=== PATIENT | male | born 1950 | race Caucasian/White ===

== ENCOUNTER → 2024-01-06 | Outpatient (CLI) | payer MEDICARE, OTHER ==
[2024-01-06 18:49] LABS: HCT 50.8 % (39.6-50.0); HGB 16.5 g/dL (13.0-17.0); MCH 31.1 pg (27.0-32.0); MCHC 32.5 g/dL (32.0-37.0); MCV 95.7 FL (80.0-97.0); Mean Platelet Volume 10.7 FL (9.5-12.2); NRBC Per 100 WBC 0 X 10*3/uL (0.00-0.01); Platelet Count 192 X 10*3/uL (140-440); RBC 5.31 X 10*6/uL (4.40-5.60); RDW 13.5 % (11.5-14.5); WBC 7.86 X 10*3/uL (4.50-10.00)
[2024-01-06 21:29] LABS: ALT 14 U/L (10-49); AST 19 U/L (14-35); Albumin 4.2 g/dL (3.8-4.9); Albumin/Globulin Ratio 1.75 Ratio (1.60-3.17); Alkaline Phosphatase 37 U/L (41-126); BUN/Creat Ratio 20.62 Ratio (12.00-20.00); Blood Urea Nitrogen 26.8 mg/dL (9.0-27.0); Calcium 9.2 mg/dL (8.7-10.3); Carbon Dioxide 27.5 mmol/L (21.6-31.8); Chloride 104 mmol/L (96-109); Chol/HDL Ratio 4.73 Ratio; Globulin 2.4 g/dL (1.6-3.3); Glucose 91 mg/dL (70-110); Potassium 3.8 mmol/L (3.5-5.5); Sodium 145 mmol/L (135-145); Total Bilirubin 0.8 mg/dL (0.3-1.2); Total Protein 6.6 g/dL (6.2-8.2)
[2024-01-06 21:47] LABS: NT-Pro-B-Type Natriuretic Pept 1047 pg/mL (0-125)
== END | disposition home or self-care (01) ==
LOC: LABWHC1 13:45
PROVIDERS: ATTEND Student in an Organized Health Care Education/Training Program
DX: E11.22 Type 2 diabetes mellitus with diabetic chronic kidney disease (principal); N18.9 Chronic kidney disease, unspecified; D63.1 Anemia in chronic kidney disease; I50.9 Heart failure, unspecified; E78.5 Hyperlipidemia, unspecified
CPT/HCPCS: 36415; 80053; 80061; 83036; 83880; 85027

== ENCOUNTER 2024-04-05 10:36 | Day surgery (SDC) | payer MEDICARE ==
[~2024-04-05 10:36] MED LIST: SODIUM CHLORIDE 0.9% 1,000 ML IV SCH; ceFAZolin 1 GM in SODIUM CHLORIDE 0.9% IRRIG BTL 250 ML IRRIGATION PRN
[2024-04-05] MEDS: SODIUM CHLORIDE 0.9% 1,000 ML IV SCH (11:31)
[2024-04-05 11:44] LABS: Glucose,Whole Blood 124 mg/dL (70-110)
[2024-04-05 11:45] VITALS: RESP 20; TEMP 97.5
[2024-04-05] MEDS: fentaNYL (PF) 50 MCG/ML 2 ML AMP IVP ONE ×3 (12:28→12:33)
[2024-04-05] MEDS: MIDAZOLAM 2 MG/2 ML VIAL IVP ONE ×3 (12:28→12:33)
[2024-04-05] MEDS: IV FLUID CONTINUATION 1,000 ML IV ONE (12:31)
[2024-04-05] MEDS: ceFAZolin 1,000 MG VIAL IVPB ONE (12:33)
[2024-04-05] MEDS: LIDOCAINE 1% INJ 10MG/ML (20 ML MDV) SQ ONE (12:34)
--- NOTE | 2024-04-05 13:04 | P.PCN ---
Description of Procedure: CARDIOLOGY PROCEDURE NOTE Policy Value Calculator: Dr. Live Pavon Procedure performed: Dual chamber permanent pacemaker generator change Site: Left subclavian Indications: Sick Sinus Syndrome, SACHI Complications: None Blood Loss: Minimal Description of Procedure: After the risks, benefits, and alternatives of the above-mentioned procedure was explained in detail with the patient, informed consent was obtained. The patient was taken to the cardiac catheterization suite where the left subclavian area was sterily prepped and draped in the usual fashion. Patient was given IV Versed and fentanyl for sedation. The skin over the existing pulse generator was infiltrated with lidocaine. An incision was made in the skin and was deepened until the pectoral fascia was exposed. Hemostasis was obtained. The existing pulse generator was pulled out of the pocket. The leads were disconnected and were checked for thresholds. The existing leads were then inserted into the appropriate position into the new generator. They were then secured with the setscrew provided. The leads and generator were inserted into the pocket with the leads posterior. The subcutaneous tissue was approximated utilizing #2.0 and 3.0 vicryl in an interrupted stitch fashion. The dermal layer was approximated utilizing #4.0 vicryl. The area was cleansed with sterile saline and dried. A sterile 4x4 dressing was applied and the patient was transferred to the post catheterization holding area in stable and satisfactory condition. The patient tolerated the procedure well. Generator Data Sheet Tailer: [employer] Brand: [email or web address] Model #: [id number] Serial#: [id number] Right Atrial Bipolar Lead Data: Type: Active fixation lead Sheet Tailer: [employer] Model#: Tendril ST 1782TC 46cm Serial Number: [id number] Right Ventricular Bipolar Lead Data: Type: Active fixation lead Sheet Tailer: [employer] Model #: Tendril ST 1782TC 58cm Serial #: [id number] Stimulation Thresholds: Right atrial bipolar lead pacing and sensing thresholds Voltage: Afib Impedance: Afib P-wave sensing: Afib Right Ventricular bipolar lead pacing and sensing thresholds Pulse Width: 0.5ms Voltage: 1.125 volts Impedance: 390 ohms R-wave sensin.9 mV Parameter Setting: Pacing mode is VVIR Lower rate 60 bpm Upper rate 130 bpm Impressions: 1. Successful generator change of a dual chamber permanent pacemaker in the left pectoral site. Plan: 1. Routine post procedure care will be instituted as well as outpatient follow- up surveillance.
[2024-04-05 14:51] VITALS: BP 162/70; PULSE 102
== END 2024-04-05 14:30 | disposition home or self-care (01) ==
LOC: CATHEP 10:36
PROVIDERS: ATTEND Internal Medicine
CPT/HCPCS: 33228

== ENCOUNTER 2024-09-14 07:31 | Day surgery (SDC) | payer MEDICARE, OTHER ==
[2024-09-12 14:31] VITALS: BMI 39.9
[2024-09-14 08:24] VITALS: TEMP 97.3
[2024-09-14] MEDS: LACTATED RINGERS 1,000 ML IV SCH (08:28)
[2024-09-14 08:29] LABS: Glucose,Whole Blood 131 mg/dL (70-110)
[2024-09-14] MEDS ORDERED: PROPOFOL 10 MG/ML 20 ML VIAL IV ONE (08:29)
[2024-09-14] MEDS ORDERED: LIDOCAINE 1% INJ 10MG/ML (20 ML MDV) ONE (08:29)
--- NOTE | 2024-09-14 08:34 | P.GSHP ---
History of Present Illness H&P Date: 09/14/24 CHIEF COMPLAINT: Colon screen HISTORY OF PRESENT ILLNESS: The patient is a 74-year-old male who presents for colon screen. Lower endoscopy was offered for further evaluation and management. PAST MEDICAL HISTORY: Please see list. PAST SURGICAL HISTORY: Please see list. MEDICATIONS: Please see list. ALLERGIES: Please see list. SOCIAL HISTORY: No illicit drug use FAMILY HISTORY: No reports of Crohn disease or ulcerative colitis. REVIEW OF ORGAN SYSTEMS: CONSTITUTIONAL: No reports of fevers or chills. PHYSICAL EXAM: VITAL SIGNS: Stable GENERAL: Well-developed pleasant in no acute distress. HEENT: No scleral icterus. Extraocular movements grossly intact. Moist buccal mucosa. NECK: Supple without lymphadenopathy. CHEST: Unlabored respirations. Equal bilateral excursions. CARDIOVASCULAR: Regular rate and rhythm. Distal 2+ pulses. ABDOMEN: Soft, nontender, nondistended. MUSCULOSKELETAL: No clubbing, cyanosis, or edema. ASSESSMENT: 1. Colon screen. PLAN: 1. Recommend proceeding with a lower endoscopy Past Medical History Past Medical History: Atrial Fibrillation, COPD, Diabetes Mellitus, Deep Vein Thrombosis (DVT), Hyperlipidemia, Hypertension, Osteoarthritis (OA), Sleep Apnea/CPAP/BIPAP Additional Past Medical History / Comment(s): Current hemmoroids & pilonidal cyst, hx of colon polyps. Hx broken back. back pain. allergies- sinus drainage, chronic chest congestion, old blood clot to R leg, gout, wears cpap, scabs on arms, PVD, tinnitus, wears L knee brace. History of Any Multi-Drug Resistant Organisms: None Reported Past Surgical History: Appendectomy, Pacemaker Additional Past Surgical History / Comment(s): pain procedures, pilonidal cyst removal. Pacemaker insertion X2 due to bradycardia at night, sinus surgery, colonoscopy Past Anesthesia/Blood Transfusion Reactions: Previous Problems w/ Anesthesia Additional Past Anesthesia/Blood Transfusion Reaction / Comment(s): Hx of intubation for scopes in the past; pt requesting not to be intubated if possible. No hx of blood transfusion Type of Cardiac Device: Permanent Pacemaker Device Placement Date:: March 2024 Smoking Status: Former smoker - Past Family History Father History Unknown: Yes Additional Family Medical History / Comment(s): Parents are passed, medical hx unknown. Medications and Allergies Home Medications Medication Instructions Recorded Confirmed Type Aspirin 81 mg PO DAILY 03/31/24 09/12/24 History Atorvastatin Calcium 20 mg PO HS 03/31/24 09/12/24 History Azelastine HCl [Astepro] 1 spray NASAL BID 03/31/24 09/12/24 History Canagliflozin [Invokana] 300 mg PO DAILY 03/31/24 09/12/24 History Ergocalciferol [Vitamin D2 (1250 50,000 unit PO CAI 03/31/24 09/12/24 History Mcg = 78604 Iu)] Furosemide [Lasix] 40 mg PO DAILY 03/31/24 09/12/24 History Ibuprofen [Motrin] 800 mg PO DIRECTED PRN 03/31/24 09/12/24 History Liraglutide [Victoza 3-Maciel] 0.6 - 1.8 mg SQ HS PRN 03/31/24 09/12/24 History Loratadine 10 mg PO DAILY 03/31/24 09/12/24 History Rivaroxaban [Xarelto] 20 mg PO DAILY 03/31/24 09/12/24 History Unk Combivent Inhaler 1 puff INHALATION DAILY 03/31/24 09/12/24 History allopurinoL 200 mg PO DAILY 03/31/24 09/12/24 History glipiZIDE [Glipizide] 10 mg PO AC-SUPPER 03/31/24 09/12/24 History Diclofenac Sodium [Voltaren 1 applic TOPICAL CAI 09/12/24 09/12/24 History Arthritis Pain 1% Gel] Eplerenone 25 mg PO DAILY 09/12/24 09/12/24 History Metoprolol Succinate [Metoprolol 25 mg PO DAILY 09/12/24 09/12/24 History Succinate ER] Nyquil 1 dose PO DIRECTED PRN 09/12/24 09/12/24 History Oxymetazoline 0.05% Nasl [place] 2 spray EA NOSTRIL BID PRN 09/12/24 09/12/24 History [Afrin 0.05% Nasal [place]] witch Marquita [Preparation H 1 pad TOPICAL DIRECTED PRN 09/12/24 09/12/24 History Pad/Wipe] Allergies Allergy/AdvReac Type Severity Reaction Status Date / Time No Known Allergies Allergy Verified 09/14/24 08:07 Surgical - Exam Vital Signs Temp Pulse Resp BP Pulse Ox 97.3 F L 87 16 161/90 92 L 04/02/25 08:22 09/14/24 08:22 09/14/24 08:22 09/14/24 08:22 09/14/24 08:22 Results - Labs Abnormal Lab Results - Last 24 Hours (Table) 09/14/24 Range/Units 08:28 POC Glucose (mg/dL) 131 H (70-110) mg/dL
[2024-09-14 09:07] LABS: Glucose,Whole Blood 123 mg/dL (70-110)
[2024-09-14 09:14] VITALS: BP 145/82; PULSE 70; RESP 16
--- NOTE | 2024-09-14 09:20 | P.PCN ---
Date of Procedure: 09/14/24 Description of Procedure: PREOPERATIVE DIAGNOSIS: Personal history of colon polyps Colonoscopy screening. POSTOPERATIVE DIAGNOSIS: Colonoscopy screening. Diverticulosis, scattered. OPERATION: Colonoscopy to the cecum, ileocecal valve and appendiceal orifice. SURGEON: Lauryn Hardy MD. ANESTHESIA: MAC. INDICATIONS: The patient is a 74-year-old male who presents for colonoscopy screening. Last colonoscopy 5 years ago. Benefits and risks were described and informed consent was obtained. DESCRIPTION OF PROCEDURE: The patient had undergone GoLytely prep. The patient had been brought into the operating room and laid in the left lateral decubitus position. After adequate intravenous sedation, the rectum was examined with 2% lidocaine jelly. No external hemorrhoids were encountered. No recurrent pilonidal cyst was found. Prostate was unremarkable. The rectal tone was within normal limits. No lesions were palpated in the rectal vault. An Olympus colonoscope was advanced until the cecum, ileocecal valve and appendiceal orifice were clearly viewed. The prep was good. Scattered diverticulosis was encountered. No colonic polyps were found. No evidence of focal colitis was found. Retroflexion of the scope demonstrated grade 1 internal hemorrhoids without active bleeding or inflamm ation. The colon was desufflated. The patient had tolerated the procedure well. Withdrawal time was over 6 minutes. FINDINGS: Aronchick preparation quality scale 2 (1-5) Internal hemorrhoids, grade 1 No external prolapsed hemorrhoids. No arteriovenous malformations. No adenomatous polyps. No focal colitis. No recurrent pilonidal cyst RECOMMENDATIONS: Lower endoscopy in 5 years2029 Plan - Discharge Summary Discharge Rx Participant: No New Discharge Prescriptions: Continue Furosemide [Lasix] 40 mg PO DAILY Aspirin 81 mg PO DAILY Canagliflozin [Invokana] 300 mg PO DAILY Ergocalciferol [Vitamin D2 (1250 Mcg = 91937 Iu)] 50,000 unit PO CAI glipiZIDE 10 mg PO AC-SUPPER Atorvastatin Calcium 20 mg PO HS allopurinoL 200 mg PO DAILY Unk Combivent Inhaler 1 puff INHALATION DAILY Eplerenone 25 mg PO DAILY witch Marquita [Preparation H Pad/Wipe] 1 pad TOPICAL DIRECTED PRN PRN Reason: Hemorrhoids Azelastine HCl [Astepro] 1 spray NASAL BID Liraglutide [Victoza 3-Maciel] 0.6 - 1.8 mg SQ HS PRN PRN Reason: as directed, per sliding scale Ibuprofen [Motrin] 800 mg PO DIRECTED PRN PRN Reason: Pain Loratadine 10 mg PO DAILY Rivaroxaban [Xarelto] 20 mg PO DAILY Oxymetazoline 0.05% Nasl [place] [Afrin 0.05% Nasal [place]] 2 spray EA NOSTRIL BID PRN PRN Reason: Allergy Symptoms Metoprolol Succinate [Metoprolol Succinate ER] 25 mg PO DAILY Diclofenac Sodium [Voltaren Arthritis Pain 1% Gel] 1 applic TOPICAL CAI Nyquil 1 dose PO DIRECTED PRN PRN Reason: Chest congestion and cough Discharge Medication List Aspirin 81 mg PO DAILY 03/31/24 [History] Atorvastatin Calcium 20 mg PO HS 03/31/24 [History] Azelastine HCl [Astepro] 1 spray NASAL BID 03/31/24 [History] Canagliflozin [Invokana] 300 mg PO DAILY 03/31/24 [History] Ergocalciferol [Vitamin D2 (1250 Mcg = 12943 Iu)] 50,000 unit PO CAI 03/31/24 [History] Furosemide [Lasix] 40 mg PO DAILY 03/31/24 [History] Ibuprofen [Motrin] 800 mg PO DIRECTED PRN 03/31/24 [History] Liraglutide [Victoza 3-Maciel] 0.6 - 1.8 mg SQ HS PRN 03/31/24 [History] Loratadine 10 mg PO DAILY 03/31/24 [History] Rivaroxaban [Xarelto] 20 mg PO DAILY 03/31/24 [History] Unk Combivent Inhaler 1 puff INHALATION DAILY 03/31/24 [History] allopurinoL 200 mg PO DAILY 03/31/24 [History] glipiZIDE 10 mg PO AC-SUPPER 03/31/24 [History] Diclofenac Sodium [Voltaren Arthritis Pain 1% Gel] 1 applic TOPICAL CAI 09/12/24 [History] Eplerenone 25 mg PO DAILY 09/12/24 [History] Metoprolol Succinate [Metoprolol Succinate ER] 25 mg PO DAILY 09/12/24 [History] Nyquil 1 dose PO DIRECTED PRN 09/12/24 [History] Oxymetazoline 0.05% Nasl [place] [Afrin 0.05% Nasal [place]] 2 spray EA NOSTRIL BID PRN 09/12/24 [History] randy Juárez [Preparation H Pad/Wipe] 1 pad TOPICAL DIRECTED PRN 09/12/24 [History] Follow up Appointment(s)/Referral(s): Lauryn Hardy MD [STAFF PHYSICIAN] - As Needed Patient Instructions/Handouts: *Surgery [facility] - (Anesthesia) Discharge Instructions Outpatient Surgery, Diverticulosis (ED) Activity/Diet/Wound Care/Special Instructions: May resume blood thinner today. Repeat colonoscopy 5 years, 2029 Discharge Disposition: HOME SELF-CARE
== END 2024-09-14 09:53 | disposition home or self-care (01) ==
LOC: ORWHC2ENDO 07:31
PROVIDERS: ATTEND Surgery Plastic and Reconstructive Surgery
DX: Z12.11 Encounter for screening for malignant neoplasm of colon (principal); Z86.0100 Personal history of colon polyps, unspecified; K57.30 Diverticulosis of large intestine without perforation or abscess without bleeding; K64.8 Other hemorrhoids; I48.91 Unspecified atrial fibrillation; J44.9 Chronic obstructive pulmonary disease, unspecified; E11.51 Type 2 diabetes mellitus with diabetic peripheral angiopathy without gangrene; E78.5 Hyperlipidemia, unspecified; G47.30 Sleep apnea, unspecified; I10 Essential (primary) hypertension; Z95.0 Presence of cardiac pacemaker; Z87.891 Personal history of nicotine dependence; Z79.01 Long term (current) use of anticoagulants; Z79.84 Long term (current) use of oral hypoglycemic drugs; Z79.82 Long term (current) use of aspirin
CPT/HCPCS: J2003; J2704; G0105

== ENCOUNTER 2024-10-17 12:02 | Inpatient (IN) | payer OTHER, MEDICARE ==
--- NOTE | 2024-10-17 12:29 | ED ---
General Adult HPI - General Chief complaint: Shortness of Breath Stated complaint: SOB Time Seen by Provider: 10/17/24 12:05 Source: patient, RN notes reviewed, old records reviewed Mode of arrival: wheelchair Limitations: no limitations - History of Present Illness Initial comments: 74-year-old male who presents to the emergency department stating that he quit smoking about 15 years ago but comes in today because he had difficulty breathing for about a week. Patient states is getting progressively worse. Patient denies any known fever but states in the morning he does cough up some sputum. Patient denies any chest pain or palpitations. Patient denies any abdominal pain patient has nausea vomiting. Patient has any swelling to the legs or calf tenderness. Patient states he does have a history of atrial fibrillation. - Related Data Home Medications Medication Instructions Recorded Confirmed Aspirin 81 mg PO DAILY 03/31/24 09/12/24 Atorvastatin Calcium 20 mg PO HS 03/31/24 09/12/24 Azelastine HCl [Astepro] 1 spray NASAL BID 03/31/24 09/12/24 Canagliflozin [Invokana] 300 mg PO DAILY 03/31/24 09/12/24 Ergocalciferol [Vitamin D2 (1250 50,000 unit PO CAI 03/31/24 09/12/24 Mcg = 22711 Iu)] Furosemide [Lasix] 40 mg PO DAILY 03/31/24 09/12/24 Ibuprofen [Motrin] 800 mg PO DIRECTED PRN 03/31/24 09/12/24 Liraglutide [Victoza 3-Maciel] 0.6 - 1.8 mg SQ HS PRN 03/31/24 09/12/24 Loratadine 10 mg PO DAILY 03/31/24 09/12/24 Rivaroxaban [Xarelto] 20 mg PO DAILY 03/31/24 09/12/24 Unk Combivent Inhaler 1 puff INHALATION DAILY 03/31/24 09/12/24 allopurinoL 200 mg PO DAILY 03/31/24 09/12/24 glipiZIDE 10 mg PO AC-SUPPER 03/31/24 09/12/24 Diclofenac Sodium [Voltaren 1 applic TOPICAL CAI 09/12/24 09/12/24 Arthritis Pain 1% Gel] Eplerenone 25 mg PO DAILY 09/12/24 09/12/24 Metoprolol Succinate [Metoprolol 25 mg PO DAILY 09/12/24 09/12/24 Succinate ER] Nyquil 1 dose PO DIRECTED PRN 09/12/24 09/12/24 Oxymetazoline 0.05% Nasl [place] 2 spray EA NOSTRIL BID PRN 09/12/24 09/12/24 [Afrin 0.05% Nasal [place]] randy Juárez [Preparation H 1 pad TOPICAL DIRECTED PRN 09/12/24 09/12/24 Pad/Wipe] Allergies Allergy/AdvReac Type Severity Reaction Status Date / Time No Known Allergies Allergy Verified 10/17/24 12:09 Review of Systems ROS Statement: Those systems with pertinent positive or pertinent negative responses have been documented in the HPI. ROS Other: All systems not noted in ROS Statement are negative. Past Medical History Past Medical History: Atrial Fibrillation, COPD, Diabetes Mellitus, Deep Vein Th rombosis (DVT), Hyperlipidemia, Hypertension, Osteoarthritis (OA), Sleep Apnea/CPAP/BIPAP Additional Past Medical History / Comment(s): Current hemmoroids & pilonidal cyst, hx of colon polyps. Hx broken back. back pain. allergies- sinus drainage, chronic chest congestion, old blood clot to R leg, gout, wears cpap, scabs on arms, PVD, tinnitus, wears L knee brace. History of Any Multi-Drug Resistant Organisms: None Reported Past Surgical History: Appendectomy, Pacemaker Additional Past Surgical History / Comment(s): pain procedures, pilonidal cyst removal. Pacemaker insertion X2 due to bradycardia at night, sinus surgery, colonoscopy Past Anesthesia/Blood Transfusion Reactions: Previous Problems w/ Anesthesia Additional Past Anesthesia/Blood Transfusion Reaction / Comment(s): Hx of intubation for scopes in the past; pt requesting not to be intubated if possible. No hx of blood transfusion Type of Cardiac Device: Permanent Pacemaker Device Placement Date:: March 2024 Past Psychological History: No Psychological Hx Reported Smoking Status: Former smoker - Past Family History Father History Unknown: Yes Additional Family Medical History / Comment(s): Parents are passed, medical hx unknown. General Exam - General Exam Comments Initial Comments: GENERAL: Patient is well-developed and well-nourished. Patient is nontoxic and well- hydrated and is in mild distress. ENT: Neck is soft and supple. No significant lymphadenopathy is noted. Oropharynx is clear. Moist mucous membranes. Neck has full range of motion without eliciting any pain. EYES: The sclera were anicteric and conjunctiva were pink and moist. Extraocular movements were intact and pupils were equal round and reactive to light. Eyelids were unremarkable. PULMONARY: Unlabored respirations. Good breath sounds bilaterally. Has crackles in the bases much more on the right than the left CARDIOVASCULAR: There is a regular rate and rhythm without any murmurs gallops or rubs. ABDOMEN: Soft and nontender with normal bowel sounds. SKIN: Skin is clear with no lesions or rashes and otherwise unremarkable. NEUROLOGIC: Patient is alert and oriented x3. Cranial nerves II through XII are grossly intact. Motor and sensory are also intact. Normal speech, volume and content. Symmetrical smile. MUSCULOSKELETAL: Normal extremities with adequate strength and full range of motion. Scant edema bilaterally LYMPHATICS: No significant lymphadenopathy is noted PSYCHIATRIC: Normal psychiatric evaluation. Limitations: no limitations Course Vital Signs 10/17/24 10/17/24 12:05 13:32 Temperature 97.8 F Pulse Rate 114 H 105 H Respiratory 17 20 Rate Blood Pressure 141/92 135/105 O2 Sat by Pulse 92 L 94 L Oximetry Medical Decision Making - Medical Decision Making EKG is interpreted by myself. EKG shows atrial fibrillation with rapid ventricular response at 108 bpm QRS is 110 QT interval is 333 QTc is 397. Patient's EKG shows no ST segment elevation or depression. Was pt. sent in by a medical professional or institution (FAHAD Mcdonald, PASSENGER REPRESENTATIVE, urgent care, hospital, or detention...) When possible be specific @ -No Did you speak to anyone other than the patient for history (EMS, parent, family, police, friend...)? What history was obtained from this source @ -No Did you review nursing and triage notes (agree or disagree)? Why? @ -I reviewed and agree with nursing and triage notes Were old charts reviewed (outside hosp., previous admission, EMS record, old EKG, old radiological studies, urgent care reports/EKG's, detention records)? Report findings @ -No old charts were reviewed Differential Diagnosis? @ -Differential chest pain EKG interpreted by me (3pts min.). @ -As above X-rays interpreted by me (1pt min.). @ -Chest x-ray shows diffuse patchy infiltrates bilaterally consistent with either pneumonia or CHF. Patient will initially be treated for both though his CHF seems more likely. CT interpreted by me (1pt min.). @ -None done U/S interpreted by me (1pt. min.). @ -None done What testing was considered but not performed or refused? (CT, X-rays, U/S, labs)? Why? @ -None What meds were considered but not given or refused? Why? @ -None Did you discuss the management of the patient with other professionals (professionals i.e. , PA, PASSENGER REPRESENTATIVE, lab, RT, psych nurse, rn social services, demographer, teacher, nuclear medicine officer, family caseworker)? Give summary @ -Spoke with [facility] hospitalist agreed to admit the patient admit the patient I wrote admitting orders Was smoking cessation discussed for >3mins.? @ -No Was critical care preformed (if so, how long)? @ -No Were there social determinants of health that impacted care today? How? (Homelessness, low income, unemployed, alcoholism, drug addiction, transportation, low edu. Level, literacy, decrease access to med. care, fpc, rehab)? @ -No Was there de-escalation of care discussed even if they declined (Discuss DNR or withdrawal of care, Hospice)? DNR status @ -No What co-morbidities impacted this encounter? (DM, HTN, Smoking, COPD, CAD, Cancer, CVA, ARF, Chemo, Hep., AIDS, mental health diagnosis, sleep apnea, morbid obesity)? @ -None Was patient admitted / discharged? Hospital course, mention meds given and route, prescriptions, significant lab abnormalities, going to OR and other pertinent info. @ -Patient was given antibiotics in the emergency department as well as Lasix for the pulmonary edema. Patient will be admitted to extremis and hospitalist Undiagnosed new problem with uncertain prognosis? @ -No Drug Therapy requiring intensive monitoring for toxicity (Heparin, Nitro, Insulin, Cardizem)? @ -No Were any procedures done? @ -No Diagnosis/symptom? @ -Pulmonary edema Acute, or Chronic, or Acute on Chronic? @ -Acute Uncomplicated (without systemic symptoms) or Complicated (systemic symptoms)? @ -Default Side effects of treatment? @ -No Exacerbation, Progression, or Severe Exacerbation? @ -No Poses a threat to life or bodily function? How? (Chest pain, [place], [place], pneumonia, PE, COPD, DKA, ARF, appy, cholecystitis, CVA, Diverticulitis, Homicidal, Suicida l, threat to staff... and all critical care pts) @ -Yes this can lead to hypoxia and endorgan dysfunction Diagnosis/symptom? @ -Pneumonia Acute, or Chronic, or Acute on Chronic? @ -Acute Uncomplicated (without systemic symptoms) or Complicated (systemic symptoms)? @ -Complicated Side effects of treatment? @ -None Exacerbation, Progression, or Severe Exacerbation] @ -No Poses a threat to life or bodily function? @ -Yes this can lead to sepsis and endorgan dysfunction - Lab Data Result diagrams: 10/17/24 12:46 10/17/24 12:46 Lab Results 10/17/24 10/17/24 10/17/24 Range/Units 12:46 12:46 12:46 WBC 9.57 (4.50-10.00) 10*3/uL RBC 5.24 (4.40-5.60) 10*6/uL Hgb 17.0 (13.0-17.0) g/dL Hct 49.5 (39.6-50.0) % MCV 94.5 (80.0-97.0) fL MCH 32.4 H (27.0-32.0) pg MCHC 34.3 (32.0-37.0) g/dL Plt Count 241 (140-440) 10*3/uL MPV 9.2 L (9.5-12.2) fL Immature Gran % (Auto) 0.3 % Neutrophils % 76.1 % Lymphocytes % 9.4 % Monocytes % 9.4 % Eosinophils % 3.8 % Basophils % 1.0 % Immature Gran # 0.03 (0.00-0.04) 10*3/uL Neutrophils # 7.28 (1.80-7.70) 10*3/uL Lymphocytes # 0.90 (0.90-5.00) 10*3/uL Monocytes # 0.90 (0.20-1.00) 10*3/uL Eosinophils # 0.36 H (0.04-0.35) 10*3/uL Basophils # 0.10 (0.00-0.10) 10*3/uL PT 14.8 H (10.0-12.5) sec INR 1.4 H (<1.2) APTT 35.3 H (22.0-30.0) sec D-Dimer 0.33 (<0.60) mg/L FEU Sodium 135 L (137-145) mmol/L Potassium 4.5 (3.5-5.1) mmol/L Chloride 101 (98-107) mmol/L Carbon Dioxide 23 (22-30) mmol/L Anion Gap 11 mmol/L BUN 24 H (9-20) mg/dL Creatinine 0.87 (0.66-1.25) mg/dL Est GFR (CKD-EPI)AfAm >90 (>60 ml/min/1.73 sqM) Est GFR (CKD-EPI)NonAf 86 (>60 ml/min/1.73 sqM) Glucose 150 H (74-99) mg/dL Plasma Lactic Acid Harry (0.7-2.0) mmol/L Calcium 9.6 (8.4-10.2) mg/dL Magnesium 2.1 (1.6-2.3) mg/dL Total Bilirubin 1.2 (0.2-1.3) mg/dL AST 23 (17-59) U/L ALT 16 (4-49) U/L Alkaline Phosphatase 67 (38-126) U/L Troponin I (0.000-0.034) ng/mL NT-Pro-B Natriuret Pep 1110 pg/mL Total Protein 6.9 (6.3-8.2) g/dL Albumin 3.7 (3.5-5.0) g/dL Influenza Type A (PCR) (Not Detectd) Influenza Type B (PCR) (Not Detectd) RSV (PCR) (Not Detectd) SARS-CoV-2 (PCR) (Not Detectd) 10/17/24 10/17/24 10/17/24 Range/Units 12:46 12:46 13:27 WBC (4.50-10.00) 10*3/uL RBC (4.40-5.60) 10*6/uL Hgb (13.0-17.0) g/dL Hct (39.6-50.0) % MCV (80.0-97.0) fL MCH (27.0-32.0) pg MCHC (32.0-37.0) g/dL Plt Count (140-440) 10*3/uL MPV (9.5-12.2) fL Immature Gran % (Auto) % Neutrophils % % Lymphocytes % % Monocytes % % Eosinophils % % Basophils % % Immature Gran # (0.00-0.04) 10*3/uL Neutrophils # (1.80-7.70) 10*3/uL Lymphocytes # (0.90-5.00) 10*3/uL Monocytes # (0.20-1.00) 10*3/uL Eosinophils # (0.04-0.35) 10*3/uL Basophils # (0.00-0.10) 10*3/uL PT (10.0-12.5) sec INR (<1.2) APTT (22.0-30.0) sec D-Dimer (<0.60) mg/L FEU Sodium (137-145) mmol/L Potassium (3.5-5.1) mmol/L Chloride (98-107) mmol/L Carbon Dioxide (22-30) mmol/L Anion Gap mmol/L BUN (9-20) mg/dL Creatinine (0.66-1.25) mg/dL Est GFR (CKD-EPI)AfAm (>60 ml/min/1.73 sqM) Est GFR (CKD-EPI)NonAf (>60 ml/min/1.73 sqM) Glucose (74-99) mg/dL Plasma Lactic Acid Harry 1.4 (0.7-2.0) mmol/L Calcium (8.4-10.2) mg/dL Magnesium (1.6-2.3) mg/dL Total Bilirubin (0.2-1.3) mg/dL AST (17-59) U/L ALT (4-49) U/L Alkaline Phosphatase (38-126) U/L Troponin I <0.012 (0.000-0.034) ng/mL NT-Pro-B Natriuret Pep pg/mL Total Protein (6.3-8.2) g/dL Albumin (3.5-5.0) g/dL Influenza Type A (PCR) Not Detected (Not Detectd) Influenza Type B (PCR) Not Detected (Not Detectd) RSV (PCR) Not Detected (Not Detectd) SARS-CoV-2 (PCR) Not Detected (Not Detectd) Disposition Clinical Impression: Acute pulmonary edema, Pneumonia Disposition: ADMITTED IP TO THIS HOSP Referrals: None,Stated [REFERRING] - 1-2 days Time of Disposition: 14:27
[2024-10-17 13:00] LABS: Eosinophils # (A) 0.36 10*3/uL (0.04-0.35); Eosinophils % (A) 3.8 %; HCT 49.5 % (39.6-50.0); Lymphocytes % (A) 9.4 %; MCH 32.4 pg (27.0-32.0); MCHC 34.3 g/dL (32.0-37.0); MCV 94.5 fL (80.0-97.0); Mean Platelet Volume 9.2 fL (9.5-12.2); Monocytes % (A) 9.4 %; Neutrophils # (A) 7.28 10*3/uL (1.80-7.70); Neutrophils % (A) 76.1 %; Platelet Count 241 10*3/uL (140-440); RBC 5.24 10*6/uL (4.40-5.60); RDW 13.7 % (11.5-14.5); WBC 9.57 10*3/uL (4.50-10.00)
[2024-10-17 13:14] LABS: ALT 16 U/L (4-49); AST 23 U/L (17-59); African American GFR (CKD) >90 (>60 ml/min/1.73 sqM); Albumin 3.7 g/dL (3.5-5.0); Anion Gap 11 mmol/L; Blood Urea Nitrogen 24 mg/dL (9-20); Calcium 9.6 mg/dL (8.4-10.2); Carbon Dioxide 23 mmol/L (22-30); Chloride 101 mmol/L (98-107); Glucose 150 mg/dL (74-99); Magnesium 2.1 mg/dL (1.6-2.3); Non-African American GFR(CKD) 86 (>60 ml/min/1.73 sqM); Potassium 4.5 mmol/L (3.5-5.1); Sodium 135 mmol/L (137-145); Total Bilirubin 1.2 mg/dL (0.2-1.3); Total Protein 6.9 g/dL (6.3-8.2)
[2024-10-17 13:15] LABS: Alkaline Phosphatase 67 U/L (38-126)
--- NOTE | 2024-10-17 13:15 | XR ---
EXAMINATION TYPE: XR chest 2V DATE OF EXAM: 10/17/2024 1:11 PM COMPARISON: None TECHNIQUE: XR chest 2V Frontal and lateral views of the chest. CLINICAL INDICATION:Male, 74 years old with history of difficulty breathing; FINDINGS: Lungs/Pleura: Pleural effusion pneumothorax. Scattered patchy airspace opacities throughout the lungs . Heart/mediastinum: Cardiomediastinal silhouette is enlarged. Two lead cardiac conduction device overl darby the left hemithorax with lead tips projecting over the right ventricle and right atrium. Musculoskeletal: No acute osseous pathology. IMPRESSION: Cardiomegaly with patchy scattered airspace opacities throughout the lungs which may represent pneumo cece versus pulmonary edema. [facility], , 10/17/2024 1:13 PM
[2024-10-17 13:18] LABS: INR 1.4 (<1.2); Partial Thromboplastin Time 35.3 sec (22.0-30.0); Prothrombin Time 14.8 sec (10.0-12.5)
[2024-10-17 13:22] LABS: NT-Pro-B-Type Natriuretic Pept 1110 pg/mL
[2024-10-17] MEDS: FUROSEMIDE 10 MG/ML 10 ML VIAL IV STA ×2 (13:34→14:04)
[2024-10-17] MEDS: cefTRIAXone IN SWFI 1,000 MG/10 ML SYRINGE IVP STA (14:03)
[2024-10-17 14:07] LABS: Influenza A Not Detected (Not Detectd); Influenza B Not Detected (Not Detectd); RSV Not Detected (Not Detectd)
[2024-10-17] MEDS ORDERED: PNEUMONIA PROTOCOL UTILIZED 1 EACH MISC PO PRN (14:27)
[2024-10-17] MEDS: FUROSEMIDE 10 MG/ML 4 ML VIAL IV SCH ×2 (14:30→20:42)
[2024-10-17] MEDS: AZITHROMYCIN 500 MG in SODIUM CHLORIDE 0.9% 250 ML IVPB STA (15:03)
[2024-10-17] MEDS: METOPROLOL SUCCINATE (ER) 50 MG TAB.ER.24H PO STA (16:03)
[2024-10-17] MEDS ORDERED: DEXTROSE 50% SYRINGE 50 ML IVP PRN ×2 (18:24)
[2024-10-17] MEDS ORDERED: IPRATROPIUM-ALBUTEROL 3 ML NEB INHALATION PRN (18:24)
--- NOTE | 2024-10-17 18:37 | P.HPIM ---
History of Present Illness H&P Date: 10/17/24 Chief Complaint: Difficulty in breathing Patient is a 74-year-old male with a known history of atrial fibrillation on anticoagulation with Xarelto, history of pacemaker placement, obstructive sleep apnea, diabetes type 2, hypertension, hypertension, obstructive sleep apnea on CPAP at home and sinus allergies/chronic chest congestion, PVD and prior history of smoking. Patient presents to ER with complaints of difficulty in breathing, cough with sputum production greenish in color for the past 1 week. Denied any complaints of chest pain or pressure. No palpitations. Patient is having some increased leg swelling. No fever no chills. No nausea vomiting or abdominal pain or diarrhea. Patient states that he had flulike symptoms for 2 weeks and June. 12 weeks ago he had severe sinus discharge with yellow sputum production for 5 days. Did not seek any medical attention. No fever or chills at the time. Chest x-ray showed cardiomegaly with patchy scattered airspace opacities throughout the lungs which may represent pneumonia versus pulmonary edema. EKG showed atrial fibrillation with rapid ventricular response. Laboratory data showed WBC 9.5 hemoglobin 17.0 and platelets 241 INR 1.4 D-dimer 0.33 Sodium 135 potassium 4.5 chloride 101 bicarb is 23 BUN 24 and creatinine 0.87 blood sugar 150 and magnesium 2.1 troponin 0.012 and proBNP 1110 Influenza A B RSV and COVID-19 PCR not detected. Review of Systems Constitutional: Patient denies any fever or chills . No generalized weakness or weight loss. Abdomen: Patient denied nausea vomiting and diarrhea and abdominal pain. Cardiovascular: Patient denies any chest pain. Patient does have short of breath no palpitations. Leg swelling. Respiratory: patient cough with yellowish sputum production and shortness of breath Neurologic: Patient denied any numbness or tingling. no headache. Musculoskeletal: Patient denies any complaints of joint swelling or deformity. Skin: Negative Psychiatric: Negative Endocrine: No heat or cold intolerance. No recent weight gain. Genitourinary: No dysuria or hematuria. All other 14 point ROS negative except the above Past Medical History Past Medical History: Atrial Fibrillation, COPD, Diabetes Mellitus, Deep Vein Thrombosis (DVT), Hyperlipidemia, Hypertension, Osteoarthritis (OA), Sleep Inventory Control Manager ea/CPAP/BIPAP Additional Past Medical History / Comment(s): Current hemmoroids & pilonidal cyst, hx of colon polyps. Hx broken back. back pain. allergies- sinus drainage, chronic chest congestion, old blood clot to R leg, gout, wears cpap, scabs on arms, PVD, tinnitus, wears L knee brace. History of Any Multi-Drug Resistant Organisms: None Reported Past Surgical History: Appendectomy, Pacemaker Additional Past Surgical History / Comment(s): pain procedures, pilonidal cyst removal. Pacemaker insertion X2 due to bradycardia at night, sinus surgery, colonoscopy Past Anesthesia/Blood Transfusion Reactions: Previous Problems w/ Anesthesia Additional Past Anesthesia/Blood Transfusion Reaction / Comment(s): Hx of intubation for scopes in the past; pt requesting not to be intubated if possible. No hx of blood transfusion Type of Cardiac Device: Permanent Pacemaker Device Placement Date:: March 2024 Past Psychological History: No Psychological Hx Reported Smoking Status: Former smoker - Past Family History Father History Unknown: Yes Additional Family Medical History / Comment(s): Parents are passed, medical hx unknown. Medications and Allergies Home Medications Medication Instructions Recorded Confirmed Type Atorvastatin Calcium 20 mg PO HS 03/31/24 10/17/24 History Azelastine HCl [Astepro] 1 spray NASAL BID PRN 03/31/24 10/17/24 History Canagliflozin [Invokana] 300 mg PO DAILY 03/31/24 10/17/24 History Ergocalciferol [Vitamin D2 (1250 1,250 mcg PO CAI 03/31/24 10/17/24 History Mcg = 04334 Iu)] Furosemide [Lasix] 40 mg PO DAILY 03/31/24 10/17/24 History Liraglutide [Victoza 3-Maciel] 0.6 - 1.8 mg SQ HS 03/31/24 10/17/24 History Loratadine 10 mg PO DAILY 03/31/24 10/17/24 History Rivaroxaban [Xarelto] 20 mg PO DAILY 03/31/24 10/17/24 History allopurinoL 200 mg PO DAILY 03/31/24 10/17/24 History glipiZIDE 10 mg PO AC-SUPPER 03/31/24 10/17/24 History Eplerenone 25 mg PO DAILY 09/12/24 10/17/24 History Metoprolol Succinate [Metoprolol 25 mg PO DAILY 09/12/24 10/17/24 History Succinate ER] Aspirin EC [Ecotrin Low Dose] 81 mg PO DAILY 10/17/24 10/17/24 History Cholecalciferol [Vitamin D3 (125 125 mcg PO DAILY 10/17/24 10/17/24 History Mcg = 5000 Iu)] Inositol/Choline/Biofla/Vitb,C 1,000 mg PO BID 10/17/24 10/17/24 History [Lipo Flavonoid Caplet] Ipratropium/Albuter 20-100Mcg 1 puff INHALATION RT-QID 10/17/24 10/17/24 History [Combivent Respimat 20-100Mcg Inhaler] Allergies Allergy/AdvReac Type Severity Reaction Status Date / Time No Known Allergies Allergy Verified 10/17/24 12:09 Physical Exam Vitals: Vital Signs Temp Pulse Resp BP Pulse Ox FiO2 10/17/24 18:27 21 10/17/24 17:29 103 H 20 149/94 96 10/17/24 16:00 97.8 F 124 H 20 149/113 92 L 10/17/24 15:01 111 H 20 10/17/24 14:56 89 24 133/104 92 L 10/17/24 13:32 105 H 20 135/105 94 L 10/17/24 12:05 97.8 F 114 H 17 141/92 92 L Intake and Output 10/17/24 10/17/24 10/17/24 06:59 14:59 22:59 Output Total 500 Balance -500 Output: Urine 500 Other: Weight 122.47 kg PHYSICAL EXAMINATION: Patient is lying in the bed, no acute distress, awake alert and oriented. Morbidly obese.. HEENT: Normocephalic. Neck is supple. Pupils reactive. Nostrils clear. Oral cavity is moist. Neck reveals no JVD, carotid bruits, or thyromegaly. CHEST EXAMINATION: Trachea is central. Symmetrical expansion. Bilateral coarse breath sounds. Nonlabored breathing. CARDIAC: Normal S1, S2 with no gallops. No murmurs, irregular rhythm. ABDOMEN: Soft. Bowel sounds normal. No organomegaly. No abdominal bruits. Extremities: reveal bilateral lower extremity 2+ edema. No clubbing or cyanosis Neurologically awake, alert, oriented x3 with well-coordinated movements. No gross focal deficits noted Skin: No rash or skin lesions. Psychiatric: Coperative. Nonsuicidal Musculoskeletal: No joint swelling or deformity. Normal range of motion. Results CBC & Chem 7: 10/17/24 12:46 10/17/24 12:46 Labs: Abnormal Lab Results - Last 24 Hours (Table) 10/17/24 10/17/24 10/17/24 Range/Units 12:46 12:46 12:46 MCH 32.4 H (27.0-32.0) pg MPV 9.2 L (9.5-12.2) fL Eosinophils # 0.36 H (0.04-0.35) 10*3/uL PT 14.8 H (10.0-12.5) sec INR 1.4 H (<1.2) APTT 35.3 H (22.0-30.0) sec Sodium 135 L (137-145) mmol/L BUN 24 H (9-20) mg/dL Glucose 150 H (74-99) mg/dL Thrombosis Risk Factor Assmnt - DVT/VTE Prophylaxis DVT/VTE Prophylaxis: Pharmacologic Prophylaxis ordered Assessment and Plan Assessment: Worsening shortness of breath and cough Acute on chronic CHF. Ejection fraction not known. Possible pneumonia Chronic atrial fibrillation with RVRon anticoagulation with Eliquis Obstructive sleep apnea on CPAP at home Diabetes type 2 Hypertension History of colon polyps Chronic sinus allergies Morbid obesity BMI 41.1 DVT prophylaxis. Patient is already on Xarelto Plan: Patient will be continued on telemonitoring. Continue with Lasix 40 mg Q8 hourly and monitor renal function. Patient is on Lasix 40 mg p.o. daily at home. Patient was also started on antibiotics ceftriaxone and azithromycin and follow- up procalcitonin level. Continue with aspirin, statin, metoprolol and Xarelto. Insulin sliding scale. Cardiology was consulted for evaluation. Follow-up repeat chest x-ray tomorrow. Sputum culture was ordered. Prognosis guarded with multiple medical problems and comorbid conditions. Time with Patient: Greater than 30
[2024-10-17 19:56] LABS: Glucose,Whole Blood 237 mg/dL (70-110)
[2024-10-17] MEDS: NITROGLYCERIN OINT 1 INCH/GM PACKET TOPICAL SCH (20:06)
[2024-10-17] MEDS: glipiZIDE 5 MG TAB PO SCH (20:26)
[2024-10-17] MEDS: ATORVASTATIN 20 MG TAB PO SCH (20:26)
[2024-10-17] MEDS: Liraglutide [Victoza] 0.6 MG/0.1 ML SQ SCH (20:27)
[2024-10-17] MEDS: INSULIN LISPRO (HumaLOG) 100 UNIT/ML 10 mL VL SQ SCH (20:27)
[2024-10-17 20:40] LABS: Glucose,Whole Blood 173 mg/dL (70-110)
[2024-10-18 00:12] LABS: Glucose,Whole Blood 105 mg/dL (70-110)
[2024-10-18 06:18] LABS: Glucose,Whole Blood 118 mg/dL (70-110)
[2024-10-18 07:16] LABS: Basophils # (A) 0.09 10*3/uL (0.00-0.10); Basophils % (A) 1.1 %; Eosinophils # (A) 0.45 10*3/uL (0.04-0.35); Eosinophils % (A) 5.3 %; HCT 51.3 % (39.6-50.0); HGB 16.6 g/dL (13.0-17.0); Lymphocytes # (A) 1.14 10*3/uL (0.90-5.00); Lymphocytes % (A) 13.5 %; MCHC 32.4 g/dL (32.0-37.0); MCV 95.9 fL (80.0-97.0); Mean Platelet Volume 9.2 fL (9.5-12.2); Monocytes % (A) 9.5 %; Neutrophils # (A) 5.91 10*3/uL (1.80-7.70); Neutrophils % (A) 70.2 %; Platelet Count 258 10*3/uL (140-440); RBC 5.35 10*6/uL (4.40-5.60); RDW 13.9 % (11.5-14.5); WBC 8.42 10*3/uL (4.50-10.00)
[2024-10-18 07:25] LABS: African American GFR (CKD) 78 (>60 ml/min/1.73 sqM); Anion Gap 9 mmol/L; Blood Urea Nitrogen 29 mg/dL (9-20); Calcium 9.1 mg/dL (8.4-10.2); Carbon Dioxide 29 mmol/L (22-30); Chloride 100 mmol/L (98-107); Glucose 117 mg/dL (74-99); Non-African American GFR(CKD) 67 (>60 ml/min/1.73 sqM); Sodium 138 mmol/L (137-145)
--- NOTE | 2024-10-18 07:40 | XR ---
EXAMINATION TYPE: XR chest 1V DATE OF EXAM: 10/18/2024 6:46 AM COMPARISON: Chest radiographs from 10/17/2024 TECHNIQUE: XR chest 1V Portable AP radiograph of the chest. CLINICAL INDICATION:Male, 74 years old with history of CHF; FINDINGS: Lungs/Pleura: No pleural effusion or pneumothorax. Similar scattered patchy airspace opacities throug hout the lungs. Heart/mediastinum: Cardiomediastinal silhouette is enlarged. Two lead cardiac conduction device overl darby the left hemithorax with lead tips projecting over the right ventricle and right atrium. Musculoskeletal: No acute osseous pathology. IMPRESSION: Cardiomegaly with similar patchy scattered airspace opacities throughout the lungs which may represen t pneumonia versus pulmonary edema with CHF exacerbation. [facility], , 10/18/2024 7:38 AM
[2024-10-18] MEDS: AZITHROMYCIN 500 MG TAB PO SCH (08:35)
[2024-10-18] MEDS: ASPIRIN 81 MG PO SCH (08:35)
[2024-10-18] MEDS: METOPROLOL SUCCINATE (ER) 25 MG TAB.ER.24H PO SCH (08:35)
[2024-10-18] MEDS: SPIRONOLACTONE 25 MG TAB PO SCH (08:35)
[2024-10-18] MEDS: LORATADINE 10 MG TAB PO SCH (08:35)
[2024-10-18] MEDS: DAPAGLIFLOZIN PROPANEDIOL 10 MG TABLET PO SCH (08:35)
[2024-10-18] MEDS: RIVAROXABAN 20 MG TAB PO SCH (08:35)
[2024-10-18] MEDS: CHOLECALCIFEROL 125 MCG (5000 IU) TABLET PO SCH (08:35)
[2024-10-18] MEDS: allopurinoL 100 MG TAB PO SCH (08:35)
[2024-10-18] MEDS: IPRATROPIUM-ALBUTEROL 3 ML NEB INHALATION SCH (08:57)
[2024-10-18] MEDS: AZELASTINE 137MCG/SPRAY NASAL PRN (09:29)
[2024-10-18 11:33] LABS: Glucose,Whole Blood 183 mg/dL (70-110)
--- NOTE | 2024-10-18 11:46 | P.CRDCN ---
History of Present Illness Consult date: 10/18/24 Reason for Consult (text): Pulmonary edema History of present illness: This is a 74-year-old male patient of Dr. Estrada with a past medical history of chronic atrial fibrillation, sick sinus syndrome status post [place] permanent pacemaker generator change 04/07, chronic heart failure with preserved EF, peripheral artery disease, obstructive sleep apnea on CPAP, COPD, diabetes mellitus type 2, dyslipidemia, morbid obesity. We have been asked to evaluate the patient for pulmonary edema. Patient gives history that has had shortness of breath has been significantly worse over the past 1 week or so. He states starting in June he had some type of viral illness such as a flu or COVID and was coughing up sputum every day. 2 weeks ago he had a sinus infection on the right side that was very painful but no sputum and developed shortness of breath which continued to worsen. He denies chest pain or chest pressure. No lightheadedness or dizziness. No palpitations. Blood pressure 121/81, heart rate 107, pulse ox 92% on 3 L nasal cannula. Patient is status post 1 dose of IV Lasix 60 mg followed by Lasix 40 g every 8 hours IV. Patient voices frustration that his Lasix was changed to 40 mg daily and he was previously on 10 mg 3 times daily which was feeding his lifestyle. He is requesting that it be changed back to 10 mg 3 times daily. -EKG: Atrial fibrillation 108 bpm. -Chest x-ray: #1 cardiomegaly with patchy scattered airspace opacities throughout the lungs may represent pneumonia versus pulmonary edema. #2 card iomegaly with similar patchy scattered airspace opacities throughout the lungs which may represent pneumonia versus pulmonary edema with CHF exacerbation. -Laboratory studies: WBC 8.4, hemoglobin 16.6. D-dimer 0.33. INR 1.4. BUN 29 creatinine 1.09. Troponin negative x 1. proBNP 1110, procalcitonin less than 0.2. Cepheid viral panel not detected. -Home cardiac medications: Aspirin 81 mg daily, atorvastatin 20 mg at bedtime, Lasix 40 mg daily, metoprolol succinate 25 mg daily, Xarelto 20 mg daily. -Lexiscan Cardiolite stress test performed in the office on 02/04/2024 revealed overall normal Lexiscan stress test. Nonischemic EKG. Normal hemodynamic response to Lexiscan infusion. -Event monitor 01/04 - 01/12/2024 revealed 100% atrial fibrillation with average heart rate of 55 bpm, ventricularly paced rhythm. Heart rate ranged between 55 and 108. Review Of Systems: At the time of my exam: CONSTITUTIONAL: Denies fever or chills. HEENT: Denies blurred vision, vision changes, or eye pain. Denies hemoptysis CARDIOVASCULAR: Denies chest pain. Denies orthopnea. Denies PND. Denies palpit ations RESPIRATORY: Reports dyspnea on exertion, reports shortness of breath. GASTROINTESTINAL: Denies abdominal pain. Denies nausea or vomiting. HEMATOLOGIC: Denies bleeding disorders. GENITOURINARY: Denies any blood in urine. SKIN: Denies puritis. Denies rash. Physical examination: Gen: This is a morbidly obese 74-year-old male in no acute distress VS: reviewed HEENT: Head is atraumatic, normocephalic. Pupils equal, round. Sclerae is anicteric. NECK: Supple. No JVD. LUNGS: Crackles to the bilateral bases. No intercostal retractions. HEART: Regular rate and rhythm. No murmur. ABDOMEN: Soft No tenderness. EXTREMITIES: No pedal edema. No calf tenderness. NEUROLOGICAL: Patient is awake, alert and oriented x3. Assessment: Acute on chronic diastolic heart failure Chronic atrial fibrillation Sick sinus syndrome status post permanent pacemaker Peripheral artery disease Obstructive sleep apnea on CPAP COPD Diabetes mellitus type 2 Dyslipidemia Hypertension Morbid obesity with BMI of 42 Plan: Resume patient's home cardiac medications Increase metoprolol succinate to 50 mg daily Discontinue Nitropaste Continue patient on IV Lasix 40 mg changed to frequency of every 12 hours Monitor SCOTT, daily weights, electrolytes and renal function Obtain 2-D echocardiogram and Doppler study to assess cardiac structure and function Further recommendations to follow based upon clinical course We will plan to make Lasix 10 mg 3 times daily at the time of discharge Patient is requesting that medication updates be sent to [facility] Thank you kindly for this consultation. Nurse practitioner note has been reviewed, I agree with documented findings and plan of care. Patient was seen and examined. Past Medical History Past Medical History: Atrial Fibrillation, COPD, Diabetes Mellitus, Deep Vein Thrombosis (DVT), Hyperlipidemia, Hypertension, Osteoarthritis (OA), Sleep Apnea/CPAP/BIPAP Additional Past Medical History / Comment(s): Current hemmoroids & pilonidal cyst, hx of colon polyps. Hx broken back. back pain. allergies- sinus drainage, chronic chest congestion, old blood clot to R leg, gout, wears cpap, scabs on a [place], PVD, tinnitus, wears L knee brace. History of Any Multi-Drug Resistant Organisms: None Reported Past Surgical History: Appendectomy, Pacemaker Additional Past Surgical History / Comment(s): pain procedures, pilonidal cyst removal. Pacemaker insertion X2 due to bradycardia at night, sinus surgery, colonoscopy Past Anesthesia/Blood Transfusion Reactions: Previous Problems w/ Anesthesia Additional Past Anesthesia/Blood Transfusion Reaction / Comment(s): Hx of intubation for scopes in the past; pt requesting not to be intubated if possible. No hx of blood transfusion Type of Cardiac Device: Permanent Pacemaker Device Placement Date:: March 2024 Past Psychological History: No Psychological Hx Reported Smoking Status: Former smoker - Past Family History Father History Unknown: Yes Additional Family Medical History / Comment(s): Parents are passed, medical hx unknown. Medications and Allergies Home Medications Medication Instructions Recorded Confirmed Type Atorvastatin Calcium 20 mg PO HS 03/31/24 10/17/24 History Azelastine HCl [Astepro] 1 spray NASAL BID PRN 03/31/24 10/17/24 History Canagliflozin [Invokana] 300 mg PO DAILY 03/31/24 10/17/24 History Ergocalciferol [Vitamin D2 (1250 1,250 mcg PO CAI 03/31/24 10/17/24 History Mcg = 70580 Iu)] Furosemide [Lasix] 40 mg PO DAILY 03/31/24 10/17/24 History Liraglutide [Victoza 3-Maciel] 0.6 - 1.8 mg SQ HS 03/31/24 10/17/24 History Loratadine 10 mg PO DAILY 03/31/24 10/17/24 History Rivaroxaban [Xarelto] 20 mg PO DAILY 03/31/24 10/17/24 History allopurinoL 200 mg PO DAILY 03/31/24 10/17/24 History glipiZIDE 10 mg PO AC-SUPPER 03/31/24 10/17/24 History Eplerenone 25 mg PO DAILY 09/12/24 10/17/24 History Metoprolol Succinate [Metoprolol 25 mg PO DAILY 09/12/24 10/17/24 History Succinate ER] Aspirin EC [Ecotrin Low Dose] 81 mg PO DAILY 10/17/24 10/17/24 History Cholecalciferol [Vitamin D3 (125 125 mcg PO DAILY 10/17/24 10/17/24 History Mcg = 5000 Iu)] Inositol/Choline/Biofla/Vitb,C 1,000 mg PO BID 10/17/24 10/17/24 History [Lipo Flavonoid Caplet] Ipratropium/Albuter 20-100Mcg 1 puff INHALATION RT-QID 10/17/24 10/17/24 History [Combivent Respimat 20-100Mcg Inhaler] Allergies Allergy/AdvReac Type Severity Reaction Status Date / Time No Known Allergies Allergy Verified 10/17/24 12:09 Physical Exam Vitals: Vital Signs Temp Pulse Pulse Pulse Resp BP BP 10/18/24 09:10 104 H 10/18/24 08:57 100 10/18/24 08:33 107 H 16 121/81 10/18/24 04:00 75 18 129/84 10/17/24 23:25 104 H 18 132/90 10/17/24 20:40 98.1 F 105 H 18 107/68 10/17/24 18:27 10/17/24 18:15 114 H 20 133/83 10/17/24 17:29 103 H 20 149/94 10/17/24 16:00 97.8 F 124 H 20 149/113 10/17/24 15:01 111 H 20 10/17/24 14:56 89 24 133/104 10/17/24 13:32 105 H 20 135/105 10/17/24 12:05 97.8 F 114 H 17 141/92 Pulse Ox FiO2 10/18/24 09:10 10/18/24 08:57 10/18/24 08:33 92 L 10/18/24 04:00 92 L 10/17/24 23:25 92 L 10/17/24 20:40 92 L 10/17/24 18:27 21 10/17/24 18:15 93 L 10/17/24 17:29 96 10/17/24 16:00 92 L 10/17/24 15:01 10/17/24 14:56 92 L 10/17/24 13:32 94 L 10/17/24 12:05 92 L Intake and Output 10/17/24 10/18/24 10/18/24 22:59 06:59 14:59 Intake Total 480 Output Total 950 Balance -470 Intake: Oral 480 Output: Urine 950 Other: Voiding Method Toilet Toilet # Voids 1 Weight 122.47 kg 125.4 kg Results 10/18/24 06:30 10/18/24 06:30 Cardiac Enzymes 10/17/24 10/17/24 Range/Units 12:46 12:46 AST 23 (17-59) U/L Troponin I <0.012 (0.000-0.034) ng/mL Coagulation 10/17/24 Range/Units 12:46 PT 14.8 H (10.0-12.5) sec APTT 35.3 H (22.0-30.0) sec CBC 10/17/24 10/18/24 Range/Units 12:46 06:30 WBC 9.57 8.42 (4.50-10.00) 10*3/uL RBC 5.24 5.35 (4.40-5.60) 10*6/uL Hgb 17.0 16.6 (13.0-17.0) g/dL Hct 49.5 51.3 H (39.6-50.0) % Plt Count 241 258 (140-440) 10*3/uL Comprehensive Metabolic Panel 10/17/24 10/18/24 Range/Units 12:46 06:30 Sodium 135 L 138 (137-145) mmol/L Potassium 4.5 4.0 (3.5-5.1) mmol/L Chloride 101 100 (98-107) mmol/L Carbon Dioxide 23 29 (22-30) mmol/L BUN 24 H 29 H (9-20) mg/dL Creatinine 0.87 1.09 (0.66-1.25) mg/dL Glucose 150 H 117 H (74-99) mg/dL Calcium 9.6 9.1 (8.4-10.2) mg/dL AST 23 (17-59) U/L ALT 16 (4-49) U/L Alkaline Phosphatase 67 (38-126) U/L Total Protein 6.9 (6.3-8.2) g/dL Albumin 3.7 (3.5-5.0) g/dL Current Medications Generic Name Dose Route Start Last Admin Trade Name Freq PRN Reason Stop Dose Admin Acetaminophen 500 mg 10/17/24 16:49 Acetaminophen Tab 500 Mg Tab PO Q6HR PRN Fever and/ or Pain Albuterol/Ipratropium 3 ml 10/17/24 18:24 Ipratropium-Albuterol 3 Ml Neb INHALATION RT-QID PRN Shortness Of Breath Or Wheezing Albuterol/Ipratropium 3 ml 10/18/24 08:34 10/18/24 08:57 Ipratropium-Albuterol 3 Ml Neb INHALATION 3 ml RT-QID LEEANNA Administration Allopurinol 200 mg 10/18/24 09:00 10/18/24 08:35 Allopurinol 100 Mg Tab PO 200 mg DAILY LEEANNA Administration Aspirin 81 mg 10/18/24 09:00 10/18/24 08:35 Aspirin 81 Mg PO 81 mg DAILY LEEANNA Administration Atorvastatin Calcium 20 mg 10/17/24 21:00 10/17/24 20:26 Atorvastatin 20 Mg Tab PO 20 mg HS LEEANNA Administration Azelastine HCl 1 spray 10/17/24 18:22 Azelastine 137mcg/[place] NASAL BID PRN Allergy Symptoms Azithromycin 500 mg 10/18/24 09:00 10/18/24 08:35 Azithromycin 500 Mg Tab PO 10/19/24 09:01 500 mg DAILY LEEANNA Administration Protocol Cholecalciferol 125 mcg 10/18/24 09:00 10/18/24 08:35 Cholecalciferol 125 Mcg (5000 Iu) Tablet PO 125 mcg DAILY LEEANNA Administration Dapagliflozin 10 mg 10/18/24 09:00 10/18/24 08:35 Dapagliflozin Propanediol 10 Mg Tablet PO 10 mg DAILY LEEANNA Administration Dextrose/Water 25 ml 10/17/24 18:24 Dextrose 50% Syringe 50 Ml IVP PER PROTOCOL PRN Hypoglycemia Protocol Dextrose/Water 50 ml 10/17/24 18:24 Dextrose 50% Syringe 50 Ml IVP PER PROTOCOL PRN Hypoglycemia Protocol Furosemide 40 mg 10/17/24 22:00 10/18/24 05:30 Furosemide 10 Mg/Ml 4 Ml Vial IV 40 mg Q8H LEEANNA Administration Glipizide 10 mg 10/17/24 19:00 10/17/24 20:26 Glipizide 5 Mg Tab PO 10 mg AC-SUPPER LEEANNA Administration Ceftriaxone Sodium 2 gm/ 50 mls @ 100 mls/hr 10/18/24 14:00 Dextrose/Water IVPB 10/21/24 14:29 Q24H [facility] Protocol Insulin Human Lispro 0 unit 10/17/24 21:00 10/18/24 06:53 Insulin Lispro (Humalog) 100 Unit/Ml 10 Ml Vl SQ Not Given ACHS [facility] Protocol Loratadine 10 mg 10/18/24 09:00 10/18/24 08:35 Loratadine 10 Mg Tab PO 10 mg DAILY LEEANNA Administration Metoprolol Succinate 25 mg 10/18/24 09:00 10/18/24 08:35 Metoprolol Succinate (Er) 25 Mg Tab.Er.24h PO 25 mg DAILY LEEANNA Administration Miscellaneous Information 1 each 10/17/24 14:27 Pneumonia Protocol Utilized 1 Each Misc PO ONCE PRN Per Protocol Nitroglycerin 1 inch 10/17/24 18:00 10/18/24 05:24 Nitroglycerin Oint 1 Inch/Gm Packet TOPICAL 10/18/24 17:59 Not Given Q6HR [facility] Liraglutide [Victoza 1 each 10/17/24 21:00 10/17/24 20:27 ] 0.6 Mg/0.1 Ml SQ Not Given HS [facility] Rivaroxaban 20 mg 10/18/24 09:00 10/18/24 08:35 Rivaroxaban 20 Mg Tab PO 20 mg DAILY LEEANNA Administration Protocol Spironolactone 25 mg 10/18/24 09:00 10/18/24 08:35 Spironolactone 25 Mg Tab PO 25 mg BID LEEANNA Administration Intake and Output 10/17/24 10/18/24 10/18/24 22:59 06:59 14:59 Intake Total 480 Output Total 950 Balance -470 Intake: Oral 480 Output: Urine 950 Other: Voiding Method Toilet Toilet # Voids 1 Weight 122.47 kg 125.4 kg 10/18/24 06:30 10/18/24 06:30
[2024-10-18] MEDS: METOPROLOL SUCCINATE (ER) 25 MG TAB.ER.24H PO STA (12:00)
[2024-10-18 12:58] VITALS: BMI 42.0
[2024-10-18] MEDS: cefTRIAXone 2 GM in DEXTROSE 5% IN WATER 50 ML IVPB SCH (14:01)
[2024-10-18 16:38] LABS: Glucose,Whole Blood 158 mg/dL (70-110)
[2024-10-18 20:01] LABS: Glucose,Whole Blood 198 mg/dL (70-110)
[2024-10-18] MEDS: FUROSEMIDE 10 MG/ML 4 ML VIAL IV SCH (20:55)
--- NOTE | 2024-10-18 22:04 | P.PN ---
Subjective Progress Note Date: 10/18/24 Patient is a 74-year-old male with a known history of atrial fibrillation on anticoagulation with Xarelto, history of pacemaker placement, obstructive sleep apnea, diabetes type 2, hypertension, hypertension, obstructive sleep apnea on CPAP at home and sinus allergies/chronic chest congestion, PVD and prior history of smoking. Patient presents to ER with complaints of difficulty in breathing, cough with sputum production greenish in color for the past 1 week. Denied any complaints of chest pain or pressure. No palpitations. Patient is having some increased leg swelling. No fever no chills. No nausea vomiting or abdominal pain or diarrhea. Patient states that he had flulike symptoms for 2 weeks and June. 06/16 weeks ago he had severe sinus discharge with yellow sputum production for 5 days. Did not seek any medical attention. No fever or chills at the time. Chest x-ray showed cardiomegaly with patchy scattered airspace opacities throughout the lungs which may represent pneumonia versus pulmonary edema. EKG showed atrial fibrillation with rapid ventricular response. Laboratory data showed WBC 9.5 hemoglobin 17.0 and platelets 241 INR 1.4 D-dimer 0.33 Sodium 135 potassium 4.5 chloride 101 bicarb is 23 BUN 24 and creatinine 0.87 blood sugar 150 and magnesium 2.1 troponin 0.012 and proBNP 1110 Influenza A B RSV and COVID-19 PCR not detected. 10/18/2024 Patient is awake alert and oriented. No complaints of chest pain. Breathing status is improving. Denied any cough today. Currently on 3 L oxygen via nasal cannula. Laboratory data showed WBC 8.4 hemoglobin 16.6 and platelets 258 sodium 138 potassium 4.0 chloride 100 bicarb is 29 BUN 29 creatinine 1.09 and blood sugar 117 A1c 6.3 calcium 9.1. Procalcitonin level is less than 0.2 Patient has been continued on Lasix, dose reduced to 2 40 mg every 12. Chest x-ray showed cardiomegaly with similar patchy scattered airspace opacities throughout the lungs which may represent pneumonia versus pulmonary edema with CHF exacerbation. Current medications reviewed. Objective - Vital Signs Vital signs: Vital Signs Temp 97.7 F 10/18/24 20:00 Pulse 104 H 10/18/24 20:00 Resp 20 10/18/24 20:00 BP 152/102 10/18/24 20:00 Pulse Ox 94 L 10/18/24 20:00 FiO2 21 10/17/24 18:27 Intake & Output 10/18/24 10/18/24 10/19/24 06:59 18:59 06:59 Intake Total 1280 Output Total 1650 450 Balance -370 -450 Weight 125.4 kg 125.4 kg Intake: IV 20 Invasive Line 1 20 Oral 1260 Output: Urine 1650 450 Other: Voiding Method Toilet Urinal # Voids 1 # Bowel Movements 1 - Exam PHYSICAL EXAMINATION: Patient is lying in the bed, no acute distress, awake alert and oriented. Morbidly obese.. HEENT: Normocephalic. Neck is supple. Pupils reactive. Nostrils clear. Oral cavity is moist. Neck reveals no JVD, carotid bruits, or thyromegaly. CHEST EXAMINATION: Trachea is central. Symmetrical expansion. Bilateral coarse breath sounds. Nonlabored breathing. CARDIAC: Normal S1, S2 with no gallops. No murmurs, irregular rhythm. ABDOMEN: Soft. Bowel sounds normal. No organomegaly. No abdominal bruits. Extremities: reveal bilateral lower extremity 2+ edema. No clubbing or cyanosis Neurologically awake, alert, oriented x3 with well-coordinated movements. No gross focal deficits noted Skin: No rash or skin lesions. Psychiatric: Coperative. Nonsuicidal Musculoskeletal: No joint swelling or deformity. Normal range of motion. - Labs CBC & Chem 7: 10/18/24 06:30 10/18/24 06:30 Labs: Abnormal Lab Results - Last 24 Hours (Table) 10/18/24 10/18/24 10/18/24 Range/Units 06:16 06:30 06:30 Hct 51.3 H (39.6-50.0) % MPV 9.2 L (9.5-12.2) fL Eosinophils # 0.45 H (0.04-0.35) 10*3/uL BUN (9-20) mg/dL Glucose (74-99) mg/dL POC Glucose (mg/dL) 118 H (70-110) mg/dL Hemoglobin A1c 6.3 H (<=6.0) % 10/18/24 10/18/24 10/18/24 Range/Units 06:30 11:30 16:36 Hct (39.6-50.0) % MPV (9.5-12.2) fL Eosinophils # (0.04-0.35) 10*3/uL BUN 29 H (9-20) mg/dL Glucose 117 H (74-99) mg/dL POC Glucose (mg/dL) 183 H 158 H (70-110) mg/dL Hemoglobin A1c (<=6.0) % 10/18/24 Range/Units 19:59 Hct (39.6-50.0) % MPV (9.5-12.2) fL Eosinophils # (0.04-0.35) 10*3/uL BUN (9-20) mg/dL Glucose (74-99) mg/dL POC Glucose (mg/dL) 198 H (70-110) mg/dL Hemoglobin A1c (<=6.0) % Microbiology - Last 24 Hours (Table) 10/17/24 12:46 Blood Culture - Preliminary Blood 10/17/24 16:13 Gram Stain - Preliminary Sputum Sputum Culture - Preliminary Assessment and Plan Assessment: Worsening shortness of breath and cough Acute on chronic CHF. Ejection fraction not known. Possible pneumonia-less likely Chronic atrial fibrillation with RVRon anticoagulation with Eliquis Obstructive sleep apnea on CPAP at home Diabetes type 2 Hypertension History of colon polyps Chronic sinus allergies Morbid obesity BMI 41.1 DVT prophylaxis. Patient is already on Xarelto Plan: Patient will be continued on telemonitoring. Continue with Lasix 40 mg every 12 hourly and monitor renal function. Patient is on Lasix 40 mg p.o. daily at home. Patient was also started on antibiotics empirically with ceftriaxone and azithromycin and procalcitonin level less than 0.2 Continue with aspirin, statin, metoprolol and Xarelto. Insulin sliding scale. Cardiology was consulted for evaluation. Repeat chest x-ray showed pulmonary edema. Follow-up sputum culture. Prognosis guarded with multiple medical problems and comorbid conditions. Time with Patient: Greater than 30
[2024-10-18 23:44] LABS: Glucose,Whole Blood 118 mg/dL (70-110)
[2024-10-19 05:46] LABS: Glucose,Whole Blood 117 mg/dL (70-110)
[2024-10-19 08:05] LABS: African American GFR (CKD) 85 (>60 ml/min/1.73 sqM); Anion Gap 8 mmol/L; Blood Urea Nitrogen 28 mg/dL (9-20); Calcium 9.5 mg/dL (8.4-10.2); Carbon Dioxide 31 mmol/L (22-30); Chloride 100 mmol/L (98-107); Glucose 117 mg/dL (74-99); Non-African American GFR(CKD) 74 (>60 ml/min/1.73 sqM); Sodium 139 mmol/L (137-145)
[2024-10-19] MEDS: METOPROLOL SUCCINATE (ER) 50 MG TAB.ER.24H PO SCH (08:24)
[2024-10-19] MEDS: ACETAMINOPHEN TAB 500 MG TAB PO PRN (08:25)
[2024-10-19 11:40] LABS: Glucose,Whole Blood 208 mg/dL (70-110)
[2024-10-19] MEDS: guaiFENesin 600 MG TABLET.ER PO SCH (13:23)
[2024-10-19 16:41] LABS: Glucose,Whole Blood 235 mg/dL (70-110)
[2024-10-19 20:55] LABS: Glucose,Whole Blood 187 mg/dL (70-110)
[2024-10-19 23:12] LABS: Glucose,Whole Blood 198 mg/dL (70-110)
[2024-10-20 00:15] LABS: Glucose,Whole Blood 188 mg/dL (70-110)
[2024-10-20 06:22] LABS: Glucose,Whole Blood 88 mg/dL (70-110)
[2024-10-20 09:17] LABS: Basophils # (A) 0.09 10*3/uL (0.00-0.10); Eosinophils # (A) 0.41 10*3/uL (0.04-0.35); Eosinophils % (A) 4.6 %; HCT 49.8 % (39.6-50.0); HGB 16.7 g/dL (13.0-17.0); Lymphocytes # (A) 0.93 10*3/uL (0.90-5.00); Lymphocytes % (A) 10.4 %; MCH 32.4 pg (27.0-32.0); MCHC 33.5 g/dL (32.0-37.0); MCV 96.5 fL (80.0-97.0); Mean Platelet Volume 9.5 fL (9.5-12.2); Monocytes # (A) 0.78 10*3/uL (0.20-1.00); Monocytes % (A) 8.8 %; Neutrophils # (A) 6.67 10*3/uL (1.80-7.70); Neutrophils % (A) 74.9 %; Platelet Count 265 10*3/uL (140-440); RBC 5.16 10*6/uL (4.40-5.60); RDW 13.6 % (11.5-14.5); WBC 8.91 10*3/uL (4.50-10.00)
[2024-10-20 09:43] LABS: African American GFR (CKD) >90 (>60 ml/min/1.73 sqM); Anion Gap 10 mmol/L; Blood Urea Nitrogen 30 mg/dL (9-20); Calcium 9.5 mg/dL (8.4-10.2); Carbon Dioxide 30 mmol/L (22-30); Chloride 99 mmol/L (98-107); Glucose 159 mg/dL (74-99); Non-African American GFR(CKD) 80 (>60 ml/min/1.73 sqM); Potassium 4.2 mmol/L (3.5-5.1); Sodium 139 mmol/L (137-145)
--- NOTE | 2024-10-20 10:04 | CA ---
Transthoracic Echo Report Name: Martell Adams Age: 74 Gender: M : 1950 Exam Date: 10/19/2024 12:08 Exam Location: [facility] Ht (in): 68 Wt (lb): 276 Ordering Physician: Eduarda Dumont Attending/Referring Phys: [id number], Julia Tuber Machine Operator Paulette Whitley RDCS Procedure CPT: Indications: afib, elevated troponins Cardiac Hx: A-fib rvr, pacemaker, pneumonia Technical Quality: Very technically difficult study Contrast 1: Definity Total Dose (mL): 8 Contrast 2: Total Dose (mL): MEASUREMENTS (Male / Female) Normal Values 2D ECHO LV Diastolic Diameter PLAX 3.6 cm 4.2 - 5.9 / 3.9 - 5.3 cm LV Systolic Diameter PLAX 2.3 cm IVS Diastolic Thickness 1.1 cm 0.6 - 1.0 / 0.6 - 0.9 cm LVPW Diastolic Thickness 1.0 cm 0.6 - 1.0 / 0.6 - 0.9 cm LV Relative Wall Thickness 0.6 LVOT Diameter 2.1 cm LV Diastolic Volume MOD BP 55.5 cm??? 67 - 155 / 56 - 104 cm??? LV Systolic Volume MOD BP 16.9 cm??? 22 - 58 / 19 - 49 cm??? LV Ejection Fraction MOD BP 69.6 % >= 55 % LV Cardiac Index MOD BP 1768.4 cm???/min???m??? LV Diastolic Volume MOD 4C 54.7 cm??? LV Systolic Volume MOD 4C 16.8 cm??? LV Ejection Fraction MOD 4C 69.3 % LV Cardiac Index MOD 4C 1735.6 cm???/min???m??? LV Diastolic Length 4C 7.0 cm LV Systolic Length 4C 5.3 cm LV Diastolic Volume MOD 2C 55.3 cm??? LV Systolic Volume MOD 2C 17.1 cm??? LV Ejection Fraction MOD 2C 69.2 % LV Cardiac Index MOD 2C 1753.3 cm???/min???m??? LV Diastolic Length 2C 6.9 cm LV Systolic Length 2C 5.4 cm DOPPLER AV Peak Velocity 83.4 cm/s AV Peak Gradient 2.8 mmHg AV Mean Velocity 56.3 cm/s AV Mean Gradient 1.5 mmHg AV Velocity Time Integral 12.0 cm LVOT Peak Velocity 75.4 cm/s LVOT Peak Gradient 2.3 mmHg LVOT Velocity Time Integral 11.2 cm LVOT Stroke Volume 40.0 cm??? LVOT Stroke Volume Index 17.1 ml/m??? LVOT Cardiac Index 1832.2 cm???/min???m??? AV Area Cont Eq vti 3.3 cm??? AV Area Cont Eq pk 3.2 cm??? TR Peak Velocity 241.8 cm/s TR Peak Gradient 23.4 mmHg Right Atrial Pressure 10.0 mmHg Pulmonary Artery Systolic Pressu 33.4 mmHg Right Ventricular Systolic Press 33.4 mmHg PV Peak Velocity 91.3 cm/s PV Peak Gradient 3.3 mmHg FINDINGS Left Ventricle Left ventricular ejection fraction is estimated at 50-55 % with beat to beat variability. Mildly increased septal wall thickness. Left ventricle not well visualized. Unable to comment on regionals due to poor image quality. Right Ventricle Right ventricle not well visualized. Probable reduced right ventricular global systolic function. Right ventricular systolic pressure within normal limits. Right Atrium Right atrium not well visualized. Catheter/pacemaker wire in the right atrial cavity. Left Atrium Moderately increased left atrial area. Mitral Valve Structurally normal mitral valve. No mitral stenosis, regurgitation or prolapse. Aortic Valve Aortic valve not well visualized. No aortic valve stenosis or regurgitation. Tricuspid Valve Structurally normal tricuspid valve. No tricuspid stenosis. Mild tricuspid regurgitation. Pulmonic Valve Pulmonic valve not well visualized. No pulmonic stenosis. No pulmonic regurgitation. Pericardium No pericardial effusion. Aorta Aortic annulus normal. CONCLUSIONS Technically difficult study. Echo contrast was used. LV systolic function is well-preserved. Doppler quality is suboptimal but no significant abnormalities. No pericardial effusion. Right ventricle is not well-seen Previewed by: Dr. Corrine Marin MD (Electronically Signed) Final Date: 20 Oct 2024 10:03
[2024-10-20 11:32] VITALS: RESP 20
[2024-10-20 11:33] LABS: Glucose,Whole Blood 173 mg/dL (70-110)
--- NOTE | 2024-10-20 13:03 | P.PN ---
Subjective Progress Note Date: 10/19/24 Patient is a 74-year-old male with a known history of atrial fibrillation on anticoagulation with Xarelto, history of pacemaker placement, obstructive sleep apnea, diabetes type 2, hypertension, hypertension, obstructive sleep apnea on CPAP at home and sinus allergies/chronic chest congestion, PVD and prior history of smoking. Patient presents to ER with complaints of difficulty in breathing, cough with sputum production greenish in color for the past 1 week. Denied any complaints of chest pain or pressure. No palpitations. Patient is having some increased leg swelling. No fever no chills. No nausea vomiting or abdominal pain or diarrhea. Patient states that he had flulike symptoms for 2 weeks and June. 06/16 weeks ago he had severe sinus discharge with yellow sputum production for 5 days. Did not seek any medical attention. No fever or chills at the time. Chest x-ray showed cardiomegaly with patchy scattered airspace opacities throughout the lungs which may represent pneumonia versus pulmonary edema. EKG showed atrial fibrillation with rapid ventricular response. Laboratory data showed WBC 9.5 hemoglobin 17.0 and platelets 241 INR 1.4 D-dimer 0.33 Sodium 135 potassium 4.5 chloride 101 bicarb is 23 BUN 24 and creatinine 0.87 blood sugar 150 and magnesium 2.1 troponin 0.012 and proBNP 1110 Influenza A B RSV and COVID-19 PCR not detected. 10/18/2024 Patient is awake alert and oriented. No complaints of chest pain. Breathing status is improving. Denied any cough today. Currently on 3 L oxygen via nasal cannula. Laboratory data showed WBC 8.4 hemoglobin 16.6 and platelets 258 sodium 138 potassium 4.0 chloride 100 bicarb is 29 BUN 29 creatinine 1.09 and blood sugar 117 A1c 6.3 calcium 9.1. Procalcitonin level is less than 0.2 Patient has been continued on Lasix, dose reduced to 2 40 mg every 12. Chest x-ray showed cardiomegaly with similar patchy scattered airspace opacities throughout the lungs which may represent pneumonia versus pulmonary edema with CHF exacerbation. Current medications reviewed. 10/19/2024 Patient is sitting in the chair. Awake alert and orient x 3. Breathing status is better. Continued on IV Lasix 40 mg twice daily. Continued on DuoNebs and antibiotics in the form of ceftriaxone and azithromycin. Laboratory data showed sodium 139 potassium 4.0 chloride 100 bicarb is 31 BUN 28 and creatinine 1.01 and blood sugar 117 and calcium 9.5. Patient is requiring 3 L oxygen via nasal cannula. Cardiology is on board. Objective - Vital Signs Vital signs: Vital Signs Temp 97.6 F 10/19/24 15:59 Pulse 100 10/19/24 16:11 Resp 22 10/19/24 15:59 BP 135/79 10/19/24 15:59 Pulse Ox 96 10/19/24 15:59 FiO2 21 10/17/24 18:27 Intake & Output 10/19/24 10/19/24 10/20/24 06:59 18:59 06:59 Intake Total 20 250 Output Total 1150 1925 Balance -1130 -1675 Weight 126 kg Intake: IV 20 10 Invasive Line 1 20 10 Oral 240 Output: Urine 1150 1925 Other: Voiding Method Urinal Toilet Urinal - Exam PHYSICAL EXAMINATION: Patient is lying in the bed, no acute distress, awake alert and oriented. Morbidly obese.. HEENT: Normocephalic. Neck is supple. Pupils reactive. Nostrils clear. Oral cavity is moist. Neck reveals no JVD, carotid bruits, or thyromegaly. CHEST EXAMINATION: Trachea is central. Symmetrical expansion. Bilateral coarse breath sounds. Nonlabored breathing. CARDIAC: Normal S1, S2 with no gallops. No murmurs, irregular rhythm. ABDOMEN: Soft. Bowel sounds normal. No organomegaly. No abdominal bruits. Extremities: reveal bilateral lower extremity 2+ edema. No clubbing or cyanosis Neurologically awake, alert, oriented x3 with well-coordinated movements. No gross focal deficits noted Skin: No rash or skin lesions. Psychiatric: Coperative. Nonsuicidal Musculoskeletal: No joint swelling or deformity. Normal range of motion. - Labs CBC & Chem 7: 10/20/24 08:27 10/20/24 08:27 Labs: Abnormal Lab Results - Last 24 Hours (Table) 10/18/24 10/18/24 10/19/24 Range/Units 19:59 23:42 05:45 Carbon Dioxide (22-30) mmol/L BUN (9-20) mg/dL Glucose (74-99) mg/dL POC Glucose (mg/dL) 198 H 118 H 117 H (70-110) mg/dL 10/19/24 10/19/24 10/19/24 Range/Units 07:17 11:38 16:40 Carbon Dioxide 31 H (22-30) mmol/L BUN 28 H (9-20) mg/dL Glucose 117 H (74-99) mg/dL POC Glucose (mg/dL) 208 H 235 H (70-110) mg/dL Microbiology - Last 24 Hours (Table) 10/17/24 12:46 Blood Culture - Preliminary Blood 10/17/24 16:13 Gram Stain - Final Sputum Sputum Culture - Final Assessment and Plan Assessment: Worsening shortness of breath and cough Acute on chronic CHF with preserved EF. Possible pneumonia-less likely Chronic atrial fibrillation with RVRon anticoagulation with Eliquis Obstructive sleep apnea on CPAP at home Diabetes type 2 Hypertension History of colon polyps Chronic sinus allergies Morbid obesity BMI 41.1 DVT prophylaxis. Patient is already on Xarelto Plan: Patient will be continued on telemonitoring. Oxygen at 3 L via nasal cannula. Continue with Lasix 40 mg every 12 hourly and monitor renal function. Patient is on Lasix 40 mg p.o. daily at home. Patient was also started on antibiotics empirically with ceftriaxone and azithromycin and procalcitonin level less than 0.2 Continue with aspirin, statin, metoprolol and Xarelto. Insulin sliding scale. Cardiology was consulted for evaluation. Repeat chest x-ray showed pulmonary edema. Sputum culture showed normal jareth. Prognosis guarded with multiple medical problems and comorbid conditions. Time with Patient: Greater than 30
[2024-10-20 16:33] VITALS: BP 143/83; PULSE 81; TEMP 97.5
[2024-10-20 16:50] LABS: Glucose,Whole Blood 294 mg/dL (70-110)
== END 2024-10-20 19:41 | disposition home or self-care (01) | DRG 291 ==
LOC: EC 12:02 → 3SCARD 14:28
PROVIDERS: ADMIT Internal Medicine; ATTEND Internal Medicine
DX: I11.0 Hypertensive heart disease with heart failure (principal); I50.33 Acute on chronic diastolic (congestive) heart failure; Z79.01 Long term (current) use of anticoagulants; I49.5 Sick sinus syndrome; Z68.41 Body mass index [BMI] 40.0-44.9, adult; E11.51 Type 2 diabetes mellitus with diabetic peripheral angiopathy without gangrene; I48.20 Chronic atrial fibrillation, unspecified; E66.01 Morbid (severe) obesity due to excess calories; G47.33 Obstructive sleep apnea (adult) (pediatric); E78.5 Hyperlipidemia, unspecified; Z86.0100 Personal history of colon polyps, unspecified; Z87.891 Personal history of nicotine dependence; Z79.82 Long term (current) use of aspirin; Z79.84 Long term (current) use of oral hypoglycemic drugs; Z79.899 Other long term (current) drug therapy; Z79.51 Long term (current) use of inhaled steroids; Z79.85 Long-term (current) use of injectable non-insulin antidiabetic drugs; Z95.0 Presence of cardiac pacemaker
CPT/HCPCS: 36415; 71045; 71046; 80048; 80053; 83036; 83605; 83735; 83880; 84145; 84484; 85025; 85379; 85610; 85730; 87040; 87070; 87205; 87636; 93005; 93306; 94640; 94660; 94760; 96365; 96375; 99285

== ENCOUNTER → 2024-11-18 | Outpatient (CLI) | payer OTHER | END | disposition home or self-care (01) | LOC: LABWHC1 11:46 | PROVIDERS: ATTEND Internal Medicine Critical Care Medicine | DX: J67.9 Hypersensitivity pneumonitis due to unspecified organic dust (principal) | CPT/HCPCS: 36415; 86001; 86606; 86609 ==

== ENCOUNTER → 2024-12-19 | Outpatient (CLI) | payer OTHER ==
[2024-12-19 15:33] LABS: African American GFR (CKD) 90 (>60 ml/min/1.73 sqM); Blood Urea Nitrogen 24 mg/dL (9-20); Non-African American GFR(CKD) 78 (>60 ml/min/1.73 sqM)
--- NOTE | 2024-12-19 16:37 | CT ---
EXAMINATION TYPE: CT angio chest DATE OF EXAM: 12/19/2024 4:09 PM COMPARISON: 11/11/2024 CLINICAL INDICATION: Male, 74 years old with history of R06.02 SHORTNESS OF BREATH, SHORTNESS OF JUAN PABLO TH, TECHNIQUE: CT of the chest is performed on a spiral scan at 2 mm thick sections. Study is performed with intravenous contrast timed for evaluation for pulmonary embolism. This will limit additional po rtions of the evaluation. 10mm MIP images reconstructed by the technologist are reviewed on the comp uter in the coronal and sagittal planes. Contrast used:100 mL of Isovue 370 with IV Contrast, (none if empty) Oral contrast used: (none if empty) CT DLP: 587.7 mGycm, Automated exposure control for dose reduction was used. FINDINGS: No persistent filling defects are evident to suggest an acute pulmonary embolism. No mediastinal or hilar adenopathy enlarged by CT criteria is evident. The ascending aorta diameter at the level of the main pulmonary artery is 3.6 cm. The main pulmonary artery diameter at the bifurcation is 2.8 cm. Dense consolidations in the upper lung brothers bilaterally. Differential diagnosis could include cruzito s, pneumonia, pulmonary fibrosis. Findings are progressive from comparison. Mild coronary artery calcifications present. Limited CT sections were through the upper abdomen. Upper abdomen appears unremarkable. IMPRESSION: 1. Increasing dense consolidations upper lung brothers which are nonspecific. Neoplasm, pulmonary fibro sis, infectious etiologies including atypical pneumonia. 2. No acute pulmonary embolism [facility], , 12/19/2024 4:35 PM
== END | disposition home or self-care (01) ==
LOC: RADCTMAIN 14:52
PROVIDERS: ATTEND Internal Medicine Critical Care Medicine
DX: J84.10 Pulmonary fibrosis, unspecified (principal); J18.9 Pneumonia, unspecified organism
CPT/HCPCS: 82565; 84520; 71275; 36415; Q9967

== ENCOUNTER 2025-01-12 10:05 | Day surgery (SDC) | payer OTHER ==
[2025-01-06 15:43] VITALS: BMI 87.9
[~2025-01-12 10:05] MED LIST changes: +ATROPINE SULFATE 0.4 MG/ML 1 ML VIAL IM ONE; +LACTATED RINGERS 1,000 ML IV SCH; -SODIUM CHLORIDE 0.9% 1,000 ML IV SCH; -ceFAZolin 1 GM in SODIUM CHLORIDE 0.9% IRRIG BTL 250 ML IRRIGATION PRN
[2025-01-12] MEDS: IV FLUID CONTINUATION 1,000 ML IV ONE (10:22)
[2025-01-12 10:36] VITALS: TEMP 98
[2025-01-12 10:47] LABS: Glucose,Whole Blood 85 mg/dL (70-110)
[2025-01-12] MEDS ORDERED: LIDOCAINE 2% (PF) 20 MG/ML 5 ML VIAL ONE (11:40)
[2025-01-12] MEDS ORDERED: PROPOFOL 10 MG/ML 20 ML VIAL IV ONE (11:40)
[2025-01-12] MEDS ORDERED: SUCCINYLCHOLINE CHLORIDE 200 MG/10 ML VIAL IV ONE (11:40)
[2025-01-12 12:43] LABS: Glucose,Whole Blood 82 mg/dL (70-110)
--- NOTE | 2025-01-12 12:57 | FL ---
EXAMINATION TYPE: FL bronchoscopy DATE OF EXAM: 01/12/2025 COMPARISON: NONE HISTORY: LUNG AND AIRWAY EVAL TECHNIQUE: Fluoroscopy. FINDINGS: right and left upper lob bronch with biopsies 37 sec fl 3.0813 dap IMPRESSION: As Above. [facility], , 01/12/2025 12:54 PM
[2025-01-12 12:58] VITALS: RESP 16
--- NOTE | 2025-01-12 12:59 | XR ---
EXAMINATION TYPE: XR chest 1V portable DATE OF EXAM: 01/12/2025 12:52 PM COMPARISON: 10/18/2024 CLINICAL INDICATION: Male, 74 years old with history of post bronchoscopy, TECHNIQUE: XR chest 1V portable views of the chest are obtained. FINDINGS: Demonstrated are scattered senescent parenchymal change. Coarse infiltrates are seen bilaterally which could be related to fibrosis however underlying pneumon ia or atypical pneumonia not excluded. Correlate clinically. The heart is stable. Hilar and mediastinal structures are within normal limits. Degenerative changes are seen of the dorsal spine. IMPRESSION: 1. Coarse infiltrates are seen bilaterally which could be related to fibrosis however underlying pne umonia or atypical pneumonia not excluded. Correlate clinically. [facility], , 01/12/2025 12:56 PM
[2025-01-12 13:37] LABS: Glucose,Whole Blood 124 mg/dL (70-110)
[2025-01-12 13:41] VITALS: BP 139/88; PULSE 75
--- NOTE | 2025-01-12 18:39 | PCN ---
PROCEDURE NOTE PROCEDURE: Bronchoscopy, airway examination, therapeutic lavage, BAL right upper lobe. BAL left upper lobe, brushes right upper lobe, brushes left upper lobe and transbronchial biopsies right upper lobe. PREOPERATIVE DIAGNOSIS: Diffuse bilateral infiltrates, rule out infection versus malignancy. POSTOPERATIVE DIAGNOSIS: Diffuse bilateral infiltrates, rule out infection versus malignancy. FIRST FOCUS PULLER: Dr. Alejandra Gipson. DESCRIPTION OF PROCEDURE: There was informed consent and universal timeout. Anesthesia provided general endotracheal anesthesia. The patient's procedure was done in room #1 [facility]. There was informed consent and universal timeout. After the patient was under the effects of anesthesia, the bronchoscope was inserted through the bronchoscope, adapter connected to the endotracheal tube. The bronchoscope was taken through the endotracheal tube out into the trachea. The mid and distal trachea appeared relatively normal. The tracheal rebeca was sharp. Next, we did a thorough evaluation of both lungs including right upper lobe and its 3 segments, right middle lobe and its 2 segments, right lower lobe and its 5 segments, left upper lobe proper and its 2 segments, lingula and its 2 segments and left lower lobe and its 4 segments. The findings included diffuse airway erythema and hyperemia. There were some vascular engorgement. There was some mucosal friability. There was no dominant mass or tumor. Of note, there were thick purulent looking secretions noted throughout, particularly in the right lower lobe, but throughout both lungs. They were suctioned without difficulty with the aid of saline lavage. Next, we did brushes in the left upper lobe and washes in the left upper lobe. We collected at least 35 mL of fluid from the left upper lobe. The brushes were done under fluoroscopic guidance. On the right side, we did brushes under fluoroscopic guidance to the right upper lobe, transbronchial biopsies to the right upper lobe, under fluoroscopic guidance, and washes to the right upper lobe. The patient tolerated the procedure well. There were no immediate complications. There was minimal bleeding. We made sure that there was hemostasis before the bronchoscope was withdrawn. There was no obvious pneumothorax on fluoroscopy after the procedure. The patient will be recovered. The patient will have a chest x-ray prior to discharge. There was no immediate complication. All the specimens were sent to the laboratory for analysis. The patient tolerated the procedure well without difficulty. MMODL / IJN: [id number] /
[2025-01-12 22:13] LABS: Appearance,BF Clear (Clear)
[2025-01-12 22:15] LABS: Appearance,BF Bloody (Clear)
[2025-01-16 09:29] LABS: Nucleated Cells, Body Fluid 2960 /UL
[2025-01-16 09:31] LABS: Nucleated Cells, Body Fluid 1440 /UL
== END 2025-01-12 13:52 | disposition home or self-care (01) ==
LOC: ORWHC2ENDO 10:05
PROVIDERS: ATTEND Internal Medicine Critical Care Medicine
DX: J44.9 Chronic obstructive pulmonary disease, unspecified
CPT/HCPCS: 31623; 31624; 31628; 71045; 87070; 87102; 87116; 87205; 87206; 87496; 87498; 87502; 87529; 87634; 87635; 87798; 88104; 88108; 88305; 89050